=== PATIENT | male | born 1955 | race Caucasian/White ===

== ENCOUNTER 2017-10-27 16:23 | Emergency (ER) | payer BC ==
[2017-10-27] MEDS ORDERED: BUPIVACAINE 0.5% PF 10 ML VIAL ONE (16:43)
[2017-10-27] MEDS ORDERED: TETANUS & DIPHTHERIA TOX,ADULT 0.5 ML VIAL ONE (16:43)
--- NOTE | 2017-10-27 17:41 | RAD REPORT ---
EXAM DESCRIPTION: RAD - Ankle Left 3 View -10/27/2017 5:27 pm CLINICAL HISTORY: Left ankle pain status post injury FINDINGS: No fracture or dislocation is seen. A laceration involves the medial soft tissues of the ankle.
--- NOTE | 2017-10-27 17:55 | EDPHYS ---
Physician Documentation [facility] Name: Dilip Alonzo Age: 62 yrs Sex: Male : 1955 Arrival Date: 10/27/2017 Time: 16:25 Bed 13 Private MD: Kalen Latham T ED Physician Doe Sanchez HPI: 10/27 16:43 This 62 yrs old Male presents to ER via Ambulatory with complaints of jmm LACERATION TO ANKLE. 16:43 The patient presents with an injury. The complaints affect the left ankle, left medial jmm malleolus. Onset: The symptoms/episode began/occurred acutely, today. Context: patient states that a tractor pedal hit his left ankle, cut foot. pedal is spring loaded. Historical: - Allergies: 16:30 No Known Allergies; sg - Home Meds: 16:30 Tramadol Oral [Active]; gabapentin oral oral [Active]; sg - PMHx: 16:30 Back pain; sg - PSHx: 16:30 None; sg - Immunization history:: Last tetanus immunization: > 10 years ago. - Social history:: Smoking status: Patient/guardian denies using tobacco. - Ebola Screening: : Patient negative for fever greater than or equal to 101.5 degrees Fahrenheit, and additional compatible Ebola Virus Disease symptoms Patient denies exposure to infectious person Patient denies travel to an Ebola-affected area in the 21 days before illness onset No symptoms or risks identified at this time. ROS: 16:43 MS/extremity: Positive for laceration. jmm 16:43 Skin: Positive for laceration(s). 16:43 All other systems are negative. Exam: 16:43 Head/Face: atraumatic. jmm 16:43 Constitutional: The patient appears in no acute distress, alert, awake. 16:43 Cardiovascular: Rate: normal. 16:43 Respiratory: the patient does not display signs of respiratory distress, Respirations: normal. 16:43 Musculoskeletal/extremity: ROM: intact in all extremities, left medial malleolus tenderness noted. 16:43 Skin: 3 cm laceration is noted to the left medial mallolar region. 16:43 Neuro: Orientation: is normal, Mentation: is normal, Memory: is normal. 16:43 Psych: Behavior/mood is pleasant, cooperative. Vital Signs: 16:30 BP 139 / 96; Pulse 105; Resp 17; Temp 98.9(TE); Pulse Ox 97% ; Weight 90.72 kg (R); mh5 Height 6 ft. 0 in. (182.88 cm) (R); Pain 5/10; 18:18 BP 132 / 88; Pulse 98; Resp 16; Pulse Ox 99% ; kr2 16:30 Body Mass Index 27.13 (90.72 kg, 182.88 cm) [facility] Laceration: 18:00 Wound Repair of 3cm ( 1.2in ) subcutaneous laceration to left foot. Distal jmm neuro/vascular/tendon intact. Anesthesia: Local anesthetic administered with 3 mls of 0.5% marcaine. Wound prep: Moderate cleansing with betadine by nurse by ga, Copious irrigation. Skin closed with 4 4-0 Prolene using simple sutures and sterile technique. Patient tolerated well. MDM: 16:[address] [facility] 17:53 Data reviewed: vital signs, nurses notes. Counseling: I had a detailed discussion with [facility] the patient and/or guardian regarding: the historical points, exam findings, and any diagnostic results supporting the discharge/admit diagnosis, the presence of at least one elevated blood pressure reading (>120/80) during this emergency department visit, radiology results, the need for outpatient follow up, to return to the emergency department if symptoms worsen or persist or if there are any questions or concerns that arise at home. 10/27 16:40 Order name: Ankle Left 3 View XRAY; Complete Time: 17:55 [facility] Administered Medications: 16:45 Drug: Tetanus-Diphtheria Toxoid Adult 0.5 ml {[employer] Editor: [employer]. Exp: kr2 12/29/2019. Lot #: [id number]. } Route: IM; Site: left deltoid; 18:16 Follow up: Response: No adverse reaction kr2 17:00 Drug: Marcaine (0.5 %) 20 ml {Note: Administered by PA. Dale} Volume: 10 ml; kr2 Route: Infiltration; 18:16 Follow up: Response: No adverse reaction kr2 Disposition: 18:31 Co-signature as Attending Physician, Doe Sanchez MD. rn Disposition: 10/27/17 17:54 Discharged to Home. Impression: LACERATION OF FOOT. - Condition is Stable. - Discharge Instructions: Laceration Care, Adult. - Medication Reconciliation Form, Thank You Letter, Antibiotic Education, Prescription Opioid Use form. - Follow up: Kalen Latham MD; When: 1 week; Reason: Continuance of care, Staple/Suture removal. Signatures: Dispatcher [employer] EDEmeterio Alicia, RN RN Teddy Anderson PA PA jmm Nieto, Roman, MD MD rn Reaves, Karey, RN RN kr2 Corrections: (The following items were deleted from the chart) 18:19 17:54 10/27/2017 17:54 Discharged to Home. Impression: LACERATION OF FOOT. Condition is kr2 Stable. Forms are Medication Reconciliation Form, Thank You Letter, Antibiotic Education, Prescription Opioid Use. Follow up: Kalen Latham; When: 1 week; Reason: Continuance of care, Staple/Suture removal. shirin
--- NOTE | 2017-10-27 17:55 | ER ---
Nurse's Notes [facility] Name: Dilip Alonzo Age: 62 yrs Sex: Male : 1955 Arrival Date: 10/27/2017 Time: 16:25 Bed 13 Private MD: Kalen Latham T Diagnosis: LACERATION OF FOOT Presentation: 10/27 16:27 Presenting complaint: Patient states: Left ankle, mowing and using the clutch on a sg tractor when my floot slipped off the clutch causing the pedal to pop up and cut the back and side of my left ankle. Transition of care: patient was not received from another setting of care. Onset of symptoms was October 27, 2017. Risk Assessment: Do you want to hurt yourself or someone else? Patient reports no desire to harm self or others. Initial Sepsis Screen: Does the patient meet any 2 criteria? No. Patient's initial sepsis screen is negative. Does the patient have a suspected source of infection? No. Patient's initial sepsis screen is negative. Care prior to arrival: None. 16:27 Method Of Arrival: Ambulatory 16:33 Acuity: CHELITA 4 ss Historical: - Allergies: 16:30 No Known Allergies; sg - Home Meds: 16:30 Tramadol Oral [Active]; gabapentin oral oral [Active]; sg - PMHx: 16:30 Back pain; sg - PSHx: 16:30 None; sg - Immunization history:: Last tetanus immunization: > 10 years ago. - Social history:: Smoking status: Patient/guardian denies using tobacco. - Ebola Screening: : Patient negative for fever greater than or equal to 101.5 degrees Fahrenheit, and additional compatible Ebola Virus Disease symptoms Patient denies exposure to infectious person Patient denies travel to an Ebola-affected area in the 21 days before illness onset No symptoms or risks identified at this time. Screenin:01 Abuse screen: Denies threats or abuse. Denies injuries from another. Nutritional kr2 screening: No deficits noted. Tuberculosis screening: No symptoms or risk factors identified. Fall Risk None identified. Assessment: 16:40 General: Appears in no apparent distress. comfortable, well groomed, well developed, kr2 well nourished, Behavior is calm, cooperative, appropriate for age. Pain: Complains of pain in left medial malleolus Pain currently is 5 out of 10 on a pain scale. Quality of pain is described as aching, tender, Is continuous, Alleviated by rest, Aggravated by weight bearing. Neuro: Level of Consciousness is awake, alert, obeys commands, Oriented to person, place, time, situation. Cardiovascular: Capillary refill < 3 seconds in bilateral fingers Patient's skin is warm and dry. Respiratory: Airway is patent Respiratory effort is even, unlabored, Respiratory pattern is regular, symmetrical. Derm: Skin is healthy with good turgor, Skin is pink, warm \T\ dry. Musculoskeletal: Circulation, motion, and sensation intact. Range of motion: intact in all extremities. Injury Description: Laceration sustained to left medial malleolus is 2.6 to 7.5 cm long, was sustained 30-60 minutes ago. a small amount of bleeding noted at this time. A dressing was applied. 17:05 Reassessment: Patient appears in no apparent distress at this time. Patient and/or kr2 family updated on plan of care and expected duration. Pain level reassessed. Wound cleansed and irrigated, patient tolerated well. 18:00 Reassessment: Patient appears in no apparent distress at this time. Patient and/or kr2 family updated on plan of care and expected duration. Pain level reassessed. Patient is alert, oriented x 3, equal unlabored respirations, skin warm/dry/pink. Patient denies pain at this time. Vital Signs: 16:30 BP 139 / 96; Pulse 105; Resp 17; Temp 98.9(TE); Pulse Ox 97% ; Weight 90.72 kg (R); 5 Height 6 ft. 0 in. (182.88 cm) (R); Pain 5/10; 18:18 BP 132 / 88; Pulse 98; Resp 16; Pulse Ox 99% ; kr2 16:30 Body Mass Index 27.13 (90.72 kg, 182.88 cm) [facility] ED Course: 16:25 Patient arrived in ED. sb2 16:27 Kalen Latham MD is Private Physician. sb2 16:29 Triage completed. sg 16:30 Arm band placed on. sg 16:32 Teddy Becerra PA is PHCP. [facility] 16:32 Doe Sanchez MD is Attending Physician. m 16:35 Patient has correct armband on for positive identification. Bed in low position. Call mh5 light in reach. Pulse ox on. NIBP on. 16:44 Liliam Stuart, RN is Primary Nurse. kr2 17:28 Ankle Left 3 View XRAY In Process Unspecified. EDMS 17:54 Kalen Latham MD is Referral Physician. [facility] 18:16 No provider procedures requiring assistance completed. Patient did not have IV access kr2 during this emergency room visit. Administered Medications: 16:45 Drug: Tetanus-Diphtheria Toxoid Adult 0.5 ml {Fur Finisher: [employer]. Exp: kr2 12/29/2019. Lot #: [id number]. } Route: IM; Site: left deltoid; 18:16 Follow up: Response: No adverse reaction kr2 17:00 Drug: Marcaine (0.5 %) 20 ml {Note: Administered by RO Hunter.} Volume: 10 ml; kr2 Route: Infiltration; 18:16 Follow up: Response: No adverse reaction kr2 Outcome: 17:54 Discharge ordered by MD. [facility] 18:17 Discharged to home ambulatory. kr2 18:17 Condition: good 18:17 Discharge instructions given to patient, Instructed on discharge instructions, follow up and referral plans. wound care, Demonstrated understanding of instructions, follow-up care, wound care. 18:19 Patient left the ED. kr2 Signatures: Dispatcher [employer] EDMS Emeterio Floyd, Teddy Lawrence RN, PA PA Rossi Lawrence RN RN ss Mikayla Jara [facility] Liliam Stuart, RN RN kr2 Kitty Malcolm sb2 Corrections: (The following items were deleted from the chart) 16:33 16:27 Acuity: CHELITA 3 sg ss 16:35 16:30 Temp 98.9F Temporal; 90.72 kg Reported; Height 6 ft. 0 in. Reported; BMI: 27.1; mh5 Pain 5/10; sg
== END 2017-10-27 18:19 | disposition home or self-care (01) ==
LOC: ER 16:23
PROC: 0HQNXZZ Repair Left Foot Skin, External Approach (ICD-10-PCS; principal; 2017-10-27)
DX: S91.012A Laceration without foreign body, left ankle, initial encounter (principal); W22.8XXA Striking against or struck by other objects, initial encounter; Y93.89 Activity, other specified; Y92.9 Unspecified place or not applicable; Y99.8 Other external cause status; Z23 Encounter for immunization
CPT/HCPCS: 90714; 99284

== ENCOUNTER 2019-04-23 06:53 | Emergency (ER) | payer BC, OTHER ==
[2019-04-23] MEDS ORDERED: ONDANSETRON 4 MG/2 ML VIAL ONE (07:46)
[2019-04-23] MEDS ORDERED: FENTANYL CITR 100 MCG/2 ML ONE ×2 (07:46→11:02)
[2019-04-23] MEDS ORDERED: PANTOPRAZOLE 40 MG INJ ONE (07:46)
[2019-04-23 07:51] LABS: Absolute Lymphocytes (CBC) 0.9 K/uL (0.7-4.9); Basophils % 0.4 % (0-1.3); Hematocrit 40.7 % (39.6-49.0); Lymphocytes % 9.5 % (15.3-44.8); MPV 8.3 fL (7.6-11.3); RBC Red Blood Cell Count 4.54 M/uL (4.33-5.43)
[2019-04-23] MEDS ORDERED: PANTOPRAZOLE INJ 80 MG in NA CHLORIDE 0.9% 250 ML IV SCH (08:00)
[2019-04-23 08:02] LABS: Albumin 3.5 g/dL (3.4-5.0); Bilirubin Direct 0.1 mg/dL (0-0.2); Bilirubin Total 0.6 mg/dL (0.2-1.0); Potassium 4.3 mmol/L (3.5-5.1); Protein, Total 6.9 g/dL (6.4-8.2)
[2019-04-23 08:19] LABS: Blood Morphology Comment NOT SEEN (NOT SEEN); Platelet Estimate ADEQ; Urine White Blood Cell Casts OK
--- NOTE | 2019-04-23 15:00 | ER ---
Nurse's Notes [facility] Name: Dilip Alonzo Age: 64 yrs Sex: Male : 1955 Arrival Date: 04/23/2019 Time: 06:54 Bed External Waiting Private MD: Diagnosis: Gastrointestinal hemorrhage, unspecified Presentation: 04/23 06:59 Presenting complaint: Patient states: epigastric burning pain. Pt states "I was just in aa5 [place] and my stomach has been burning since then and now I am having black stools". Transition of care: patient was not received from another setting of care. Onset of symptoms was March 2019. Risk Assessment: Do you want to hurt yourself or someone else? Patient reports no desire to harm self or others. Care prior to arrival: None. 06:59 Acuity: CHELITA 3 aa5 06:59 Method Of Arrival: Ambulatory [facility] 07:10 Initial Sepsis Screen: Does the patient meet any 2 criteria? No. Patient's initial rb1 sepsis screen is negative. Does the patient have a suspected source of infection? No. Patient's initial sepsis screen is negative. Historical: - Allergies: 07:02 NSAIDS (Upset stomach); aa5 07:02 Codeine (itching ); aa5 - PMHx: 07:02 Back pain; aa5 - PSHx: 07:02 None; aa5 - Immunization history:: Flu vaccine is not up to date. - Social history:: Smoking status: Patient/guardian denies using tobacco. - Ebola Screening: : No symptoms or risks identified at this time. Screenin:10 Abuse screen: Denies threats or abuse. Nutritional screening: No deficits noted. rb1 Tuberculosis screening: No symptoms or risk factors identified. Fall Risk None identified. Assessment: 07:10 General: Appears uncomfortable, Behavior is calm, cooperative, Reports chills for 12-24 rb1 hours, Denies fever. Pain: Complains of pain in epigastric area Pain currently is 7 out of 10 on a pain scale. Neuro: Level of Consciousness is awake, alert, obeys commands, Oriented to person, place, time, situation. Cardiovascular: Capillary refill < 3 seconds is brisk in bilateral fingers. Respiratory: Airway is patent Respiratory effort is even, unlabored, Respiratory pattern is regular, symmetrical. GI: Bowel sounds present X 4 quads. Abd is soft Abdomen is tender to palpation in epigastric area Reports bloody stool, nausea, vomiting, pt. reports a burning sensation in his abdomen. : No signs and/or symptoms were reported regarding the genitourinary system. Derm: Skin is pink, warm \\T\\ dry. 08:10 Reassessment: Patient appears in no apparent distress at this time. Patient and/or rb1 family updated on plan of care and expected duration. Pain level reassessed. Patient is alert, oriented x 3, equal unlabored respirations, skin warm/dry/pink. 09:00 Reassessment: Patient appears in no apparent distress at this time. Patient and/or rb1 family updated on plan of care and expected duration. Pain level reassessed. Patient is alert, oriented x 3, equal unlabored respirations, skin warm/dry/pink. 10:00 Reassessment: Patient appears in no apparent distress at this time. Patient and/or rb1 family updated on plan of care and expected duration. Pain level reassessed. Patient is alert, oriented x 3, equal unlabored respirations, skin warm/dry/pink. No vomiting noted since the pt. was placed into the exam room. at the bedside. 10:10 Reassessment: Called report to DION Urbano at [facility]. Information from the SBAR was rb1 given. All questions asked and answered. 11:00 Reassessment: Gave report to [facility]. Pt. requested pain medication before rb1 being transferred. David notified, received order for Fentanyl 50 mcg IVP x once. 100% read back. Vital Signs: 07:02 BP 126 / 93; Pulse 87; Resp 16 S; Pulse Ox 98% on R/A; Weight 88.45 kg (R); Height 6 aa5 ft. 0 in. (182.88 cm) (R); Pain 6/10; 07:30 BP 135 / 99; Pulse 83; Resp 17; Pulse Ox 100% on R/A; Pain 7/10; rb1 08:30 BP 137 / 90; Pulse 77; Resp 18; Pulse Ox 99% on R/A; Pain 4/10; rb1 09:30 BP 148 / 94; Pulse 88; Resp 17; Pulse Ox 100% on R/A; Pain 7/10; rb1 10:30 BP 139 / 83; Pulse 84; Resp 19; Pulse Ox 100% on R/A; Pain 6/10; rb1 11:00 BP 130 / 97; Pulse 89; Resp 17; Pulse Ox 99% on R/A; rb1 07:02 Body Mass Index 26.45 (88.45 kg, 182.88 cm) aa5 ED Course: 06:54 Patient arrived in ED. ds1 06:59 Arm band placed on. aa5 07:01 Triage completed. aa5 07:10 Patient has correct armband on for positive identification. Bed in low position. Call rb1 light in reach. Side rails up X 1. Pulse ox on. NIBP on. Warm blanket given. Pillow given. 07:15 Hubert Hernandez PA is PHCP. jr8 07:15 Ngoc Salinas MD is Attending Physician. jr8 07:24 Kamilla Melara, DION is Primary Nurse. rb1 07:33 Inserted saline lock: 22 gauge in left antecubital area, using aseptic technique. Blood rb1 collected. 11:04 No provider procedures requiring assistance completed. Patient transferred, IV remains rb1 in place. Administered Medications: 08:00 Drug: Zofran 4 mg Route: IVP; Site: left antecubital; rb1 08:15 Follow up: Response: No adverse reaction; Nausea is decreased rb1 08:00 Drug: fentaNYL (PF) 50 mcg Route: IVP; Site: left antecubital; rb1 08:15 Follow up: Response: No adverse reaction; Pain is decreased rb1 08:00 Drug: ProTONIX 40 mg Route: IVP; Site: left antecubital; rb1 08:15 Follow up: Response: No adverse reaction rb1 08:15 Drug: ProTONIX 8 mg/hr Route: IV; Rate: 25 ml/hr; Site: left antecubital; rb1 08:30 Follow up: Response: No adverse reaction rb1 11:04 Follow up: IV Status: Infusion continued upon transfer rb1 Outcome: 09:46 ER care complete, transfer ordered by . jr8 11:04 Transferred by ground EMS to [facility], Transfer form completed. rb1 11:04 Condition: stable 11:04 Instructed on the need for transfer. 11:22 Patient left the ED. Signatures: Sherrell Sotelo ds1 Vernell Medina RN RN aa5 Rossi Brown RN RN ss Hubert Hernandez PA PA jr8 Kamilla Melara, RN RN rb1 Corrections: (The following items were deleted from the chart) 10:04 07:10 GI: Bowel sounds present X 4 quads. Abd is soft Abdomen is tender to palpation in rb1 epigastric area Reports bloody stool, nausea, vomiting, rb1
--- NOTE | 2019-04-23 15:01 | EDPHYS ---
Physician Documentation [facility] Name: Dilip Alonzo Age: 64 yrs Sex: Male : 1955 Arrival Date: 04/23/2019 Time: 06:54 Bed External Waiting Private MD: ED Physician Ngoc Salinas HPI: 04/23 07:48 This 64 yrs old Male presents to ER via Ambulatory with complaints of jr8 Black/Tarry Stools, Abdominal Pain. 07:48 The patient presents to the emergency department vomiting blood, a small amount, coffee jr8 grounds in nature, with rectal bleeding, a moderate amount, melena, with multiple such episodes. Onset: The symptoms/episode began/occurred acutely, today. Abdominal pain: described as burning, crampy, located in the epigastric area. Modifying factors: The symptoms are alleviated by nothing, the symptoms are aggravated by food, PO intake. Associated signs and symptoms: The patient has no apparent associated signs or symptoms. Severity of symptoms: At their worst the symptoms were moderate in the emergency department the symptoms are unchanged. The patient has not experienced similar symptoms in the past. The patient has not recently seen a physician. Historical: - Allergies: 07:02 NSAIDS (Upset stomach); aa5 07:02 Codeine (itching ); aa5 - PMHx: 07:02 Back pain; aa5 - PSHx: 07:02 None; aa5 - Immunization history:: Flu vaccine is not up to date. - Social history:: Smoking status: Patient/guardian denies using tobacco. - Ebola Screening: : No symptoms or risks identified at this time. ROS: 07:48 Eyes: Negative for injury, pain, redness, and discharge, ENT: Negative for injury, jr8 pain, and discharge, Neck: Negative for injury, pain, and swelling, Cardiovascular: Negative for chest pain, palpitations, and edema, Respiratory: Negative for shortness of breath, cough, wheezing, and pleuritic chest pain, Back: Negative for injury and pain, MS/Extremity: Negative for injury and deformity, Skin: Negative for injury, rash, and discoloration, Neuro: Negative for headache, weakness, numbness, tingling, and seizure. 07:48 Abdomen/GI: Positive for abdominal pain, nausea and vomiting, diarrhea, black/tarry stool. Exam: 07:48 Eyes: Pupils equal round and reactive to light, extra-ocular motions intact. Lids and jr8 lashes normal. Conjunctiva and sclera are non-icteric and not injected. Cornea within normal limits. Periorbital areas with no swelling, redness, or edema. ENT: Nares patent. No nasal discharge, no septal abnormalities noted. Tympanic membranes are normal and external auditory canals are clear. Oropharynx with no redness, swelling, or masses, exudates, or evidence of obstruction, uvula midline. Mucous membranes moist. Neck: Trachea midline, no thyromegaly or masses palpated, and no cervical lymphadenopathy. Supple, full range of motion without nuchal rigidity, or vertebral point tenderness. No Meningismus. Cardiovascular: Regular rate and rhythm with a normal S1 and S2. No gallops, murmurs, or rubs. Normal PMI, no JVD. No pulse deficits. Respiratory: Lungs have equal breath sounds bilaterally, clear to auscultation and percussion. No rales, rhonchi or wheezes noted. No increased work of breathing, no retractions or nasal flaring. Back: No spinal tenderness. No costovertebral tenderness. Full range of motion. Skin: Warm, dry with normal turgor. Normal color with no rashes, no lesions, and no evidence of cellulitis. MS/ Extremity: Pulses equal, no cyanosis. Neurovascular intact. Full, normal range of motion. Neuro: Awake and alert, GCS 15, oriented to person, place, time, and situation. Cranial nerves II-XII grossly intact. Motor strength 5/5 in all extremities. Sensory grossly intact. Cerebellar exam normal. Normal gait. 07:48 Abdomen/GI: Inspection: abdomen appears normal, Bowel sounds: active, all quadrants, Palpation: soft, in all quadrants, moderate abdominal tenderness, in the epigastric area, mass, is not appreciated, rebound tenderness, is not appreciated, voluntary guarding, is not appreciated, involuntary guarding, is not appreciated, no appreciated organomegaly, Indicators: McBurney's point is not tender, Giang's sign is negative, Rovsing's sign is negative, Liver: tenderness, is not appreciated. Vital Signs: 07:02 BP 126 / 93; Pulse 87; Resp 16 S; Pulse Ox 98% on R/A; Weight 88.45 kg (R); Height 6 aa5 ft. 0 in. (182.88 cm) (R); Pain 6/10; 07:30 BP 135 / 99; Pulse 83; Resp 17; Pulse Ox 100% on R/A; Pain 7/10; rb1 08:30 BP 137 / 90; Pulse 77; Resp 18; Pulse Ox 99% on R/A; Pain 4/10; rb1 09:30 BP 148 / 94; Pulse 88; Resp 17; Pulse Ox 100% on R/A; Pain 7/10; rb1 10:30 BP 139 / 83; Pulse 84; Resp 19; Pulse Ox 100% on R/A; Pain 6/10; rb1 11:00 BP 130 / 97; Pulse 89; Resp 17; Pulse Ox 99% on R/A; rb1 07:02 Body Mass Index 26.45 (88.45 kg, 182.88 cm) aa5 MDM: 07:16 Patient medically screened. jr8 09:39 Data reviewed: vital signs, nurses notes, lab test result(s). Data interpreted: Pulse jr8 oximetry: on room air is 98 %. Interpretation: normal. Counseling: I had a detailed discussion with the patient and/or guardian regarding: the historical points, exam findings, and any diagnostic results supporting the discharge/admit diagnosis, lab results, the need to transfer to another facility, [facility] does not immediately have the required specialist. ED course: Dr. Anika SRIVASTAVA at [facility] accepted patient along with medicine team . 04/23 07:15 Order name: Basic Metabolic Panel [facility] 04/23 07:15 Order name: CBC with Diff [facility] 04/23 07:15 Order name: Creatinine for Radiology; Complete Time: 08:[address] [facility] 04/23 07:15 Order name: Hepatic Function; Complete Time: 08:05 jr8 04/23 07:15 Order name: Lipase; Complete Time: 08:05 jr8 04/23 07:15 Order name: TS jr8 04/23 07:15 Order name: IV Saline Lock; Complete Time: 07:39 jr8 04/23 07:15 Order name: Labs collected and sent; Complete Time: 07:40 8 04/23 07:16 Order name: Basic Metabolic Panel; Complete Time: 08:05 EDME 04/23 07:53 Order name: CBC Smear Scan EDMS 04/23 08:05 Order name: Labs - recollect needed; Complete Time: 12:36 bd Administered Medications: 08:00 Drug: Zofran 4 mg Route: IVP; Site: left antecubital; rb1 08:15 Follow up: Response: No adverse reaction; Nausea is decreased rb1 08:00 Drug: fentaNYL (PF) 50 mcg Route: IVP; Site: left antecubital; rb1 08:15 Follow up: Response: No adverse reaction; Pain is decreased rb1 08:00 Drug: ProTONIX 40 mg Route: IVP; Site: left antecubital; rb1 08:15 Follow up: Response: No adverse reaction rb1 08:15 Drug: ProTONIX 8 mg/hr Route: IV; Rate: 25 ml/hr; Site: left antecubital; rb1 08:30 Follow up: Response: No adverse reaction rb1 11:04 Follow up: IV Status: Infusion continued upon transfer rb1 Disposition: 15:53 Co-signature as Attending Physician, Ngoc Salinas MD. ma2 Disposition: 04/23/19 09:46 Transfer ordered to [facility]. Diagnosis is Gastrointestinal hemorrhage, unspecified. - Reason for transfer: Higher level of care. - Accepting physician is [facility]. - Condition is Stable. - Problem is new. - Symptoms are unchanged. Signatures: Dispatcher [employer] Radha Martinez Audri, RN RN aa5 Rossi Brown RN RN ss Hubert Hernandez PA PA jr8 Kamilla Melara RN RN rb1 Ngoc Salinas MD MD ma2 Corrections: (The following items were deleted from the chart) 11:22 09:46 04/23/2019 09:46 Transfer ordered to [facility]. Diagnosis is ss Gastrointestinal hemorrhage, unspecified. Reason for transfer: Higher level of care. Accepting physician is [facility]. Condition is Stable. Problem is new. Symptoms are unchanged. jr8
[2019-04-23 15:28] VITALS: BP 130/97; O2SAT 99
== END 2019-04-23 11:22 | disposition short-term general hospital (02) ==
LOC: ER 06:53
DX: R04.2 Hemoptysis (principal); Z88.5 Allergy status to narcotic agent; Z88.6 Allergy status to analgesic agent
CPT/HCPCS: 96365; 85025; 80048; 36415; 86900; 86850; 86901; 80076; 83690; 96375; 99285; 96366; C9113 ×2; J3010 ×2; J7030; J2405

== ENCOUNTER 2024-05-15 08:48 | Emergency (ER) | payer OTHER ==
[2024-05-15] MEDS ORDERED: NA CHLORIDE 0.9% 500 ML ONE (09:19)
[2024-05-15 09:29] LABS: Absolute Eosinophils 0.1 K/uL (0-0.5); Absolute Lymphocytes (CBC) 1.1 K/uL (0.7-4.9); Absolute Monocytes 0.5 K/uL (0.1-1.3); Absolute Neutrophil 5.5 K/uL (1.8-8.0); Basophils % 0.4 % (0-1.3); Hematocrit 47.5 % (39.6-49.0); Hemoglobin 16.2 g/dL (13.6-17.9); Lymphocytes % 15.1 % (15.3-44.8); MCH 32.6 pg (27.0-35.0); MCHC 34.1 g/dL (32.0-36.0); MCV 95.5 fL (80-100); MPV 7.7 fL (7.6-11.3); Monocytes % 6.6 % (3.3-12.3); Neutrophils % 76.9 % (41.7-73.7); Platelets 270 thou/uL (152-406); RBC Red Blood Cell Count 4.98 M/uL (4.33-5.43); Red Cell Distribution Width 13.6 % (12.1-15.2)
[2024-05-15 09:46] LABS: Albumin 3.7 g/dL (3.4-5.0); Albumin/Globulin Ratio 1.1 (1.1-1.8); Anion Gap 6.9 mEq/L (5.0-15.0); Bilirubin Total 1.5 mg/dL (0.2-1.0); Globulin 3.3 g/dL (2.3-3.5); Potassium 3.9 mEq/L (3.5-5.1)
--- NOTE | 2024-05-15 10:25 | RAD REPORT ---
EXAMINATION: CT Abdomen Pelvis Wo Contrast CLINICAL INDICATION: Male, 69 years old. difficulty urinating;Flank pain TECHNIQUE: CT abdomen and pelvis was performed, without IV contrast, as per department protocol. Axia l, sagittal and coronal reconstructions were obtained. One or more of the following dose reduction techniques were used: Automated exposure control, adjustment of the mA and kV according to the patien t size, and iterative reconstruction. Unless otherwise specified, incidental findings do not require dedicated imaging follow-up. COMPARISON: No prior exam. FINDINGS: The lack of intravenous contrast limits the sensitivity of this exam for evaluation of solid visceral organs, vascular structures, and retroperitoneum. LOWER CHEST: The visualized lung bases are clear. LIVER: Normal in size and contour. No focal lesion. BILIARY SYSTEM: No suspicious abnormalities. SPLEEN: Normal size. No focal lesion. PANCREAS: No mass, ductal dilation, or jamie-pancreatic fluid. ADRENALS: Normal; no mass. KIDNEYS AND URETERS: Normal size and contour. No hydronephrosis. URINARY BLADDER: Normal contour. GASTROINTESTINAL TRACT: No evidence of bowel obstruction, significant free fluid, free air or abscess . APPENDIX: Normal appendix. LYMPH NODES: No lymphadenopathy. MUSCULOSKELETAL: No acute or suspicious osseous abnormality. ADDITIONAL FINDINGS: Nonspecific mild fat stranding in the mesenteric root. This could be idiopathic or related to multiple possible etiologies, including but not limited to an upper abdominal infectious/inflammatory process, panniculitis, and can even be seen with neoplastic conditions such a s lymphoma. Mild prostatomegaly IMPRESSION: No acute or concerning abnormalities in the abdomen or pelvis, with evaluation limited by lack of IV contrast. Incidental findings as above
[2024-05-15 11:10] LABS: Specific Gravity 1.012 (1.005-1.030); Sqamous Epithelial <5 /HPF (None Seen); Urine Bacteria <20 /HPF (<20); Urine Bilirubin NEGATIVE (Negative); Urine Blood Negative (Negative); Urine Clarity Clear (Clear); Urine Color Light-Yellow (Yellow); Urine Crystals Unidentified Few /HPF (None Seen); Urine Culture Reflex Order NOT NEEDED; Urine Glucose NEGATIVE (Negative); Urine Ketones NEGATIVE (Negative); Urine Microscopic Reflex YN ORDER UMIC; Urine Mucus Slight /HPF (None Seen); Urine Nitrite NEGATIVE (Negative); Urine Protein NEGATIVE (Negative); Urine RBC <5 /HPF (None Seen); Urine Urobilinogen Normal (Normal); Urine WBC <5 /HPF (<5); Urine Yeast (Budding) Trace /HPF (None Seen); Urine pH 6.5 (5.0-7.0)
--- NOTE | 2024-05-15 11:17 | ER ---
Nurse's Notes [facility] Name: Dilip Alonzo Jr Age: 69 yrs Sex: Male : 1955 Arrival Date: 05/15/2024 Time: 08:48 Bed 7 Private MD: Diagnosis: Dysuria, urinary retention Presentation: 05/15 09:07 Chief complaint: Difficulty urinating and pain with urination x 3 days. Coronavirus hb screen: At this time, the client does not indicate any symptoms associated with coronavirus-19. Ebola Screen: No symptoms or risks identified at this time. Initial Sepsis Screen: Does the patient meet any 2 criteria? No. Patient's initial sepsis screen is negative. Does the patient have a suspected source of infection? No. Patient's initial sepsis screen is negative. Risk Assessment: Do you want to hurt yourself or someone else? Patient reports no desire to harm self or others. Onset of symptoms was May 13, 2024. 09:07 Method Of Arrival: Ambulatory hb 09:07 Acuity: CHELITA 3 hb Historical: - Allergies: 09:09 Codeine (Itching); hb 09:09 NSAIDS (Upset stomach); hb - Home Meds: 09:09 Vicodin Oral [Active]; Ambien Oral [Active]; gabapentin oral [Active]; hb - PMHx: 09:09 Back pain; hb - PSHx: 09:09 Pain Stimulator; hb - Immunization history:: Adult Immunizations up to date. - Infectious Disease History:: Denies. - Social history:: Smoking status: Patient denies any tobacco usage or history of. Screenin:25 [facility] ED Fall Risk Assessment (Adult) History of falling in the last 3 months, ph including since admission No falls in past 3 months (0 pts) Confusion or Disorientation No (0 pts) Intoxicated or Sedated No (0 pts) Impaired Gait No (0 pts) Mobility Assist Device Used No (0 pt) Altered Elimination No (0 pt) Score/Fall Risk Level 0 - 2 = Low Risk Oriented to surroundings, Maintained a safe environment, Hourly rounding (assess needs \T\ fall precautionary measures) done. Abuse screen: Denies threats or abuse. Denies injuries from another. Nutritional screening: No deficits noted. Tuberculosis screening: No symptoms or risk factors identified. Assessment: 09:24 General: Appears in no apparent distress. comfortable, well groomed, Behavior is calm, ph cooperative, appropriate for age. Pain: Complains of pain in pelvis. Neuro: Level of Consciousness is awake, alert, obeys commands, Oriented to person, place, time, situation. Cardiovascular: Capillary refill < 3 seconds in bilateral fingers Patient's skin is warm and dry. Respiratory: Airway is patent Respiratory effort is even, unlabored, Respiratory pattern is regular, symmetrical. : Reports burning with urination. Derm: Skin is healthy with good turgor, Skin is pink, warm \T\ dry. Musculoskeletal: Circulation, motion, and sensation intact. Range of motion: intact in all extremities. Vital Signs: 09:07 BP 150 / 93; Pulse 88; Resp 16; Temp 98.3(O); Pulse Ox 98% on R/A; Weight 84.82 kg; hb Height 6 ft. 0 in. ; Pain 2/10; 10:57 BP 139 / 93; Pulse 84; Resp 18; Pulse Ox 99% on R/A; ph 09:07 Body Mass Index 25.36 (84.82 kg, 182.88 cm) hb 09:07 Pain Scale: Adult hb ED Course: 08:51 Patient arrived in ED. im 09:01 June Portillo MD is Attending Physician. sp3 09:09 Triage completed. hb 09:13 Arm band placed on. hb 09:17 Ricarda Pichardo, RN is Primary Nurse. ph 09:23 Missed attempt(s): 22 gauge in right antecubital area. Bleeding controlled, band aid ll1 applied, catheter tip intact. 09:25 Patient has correct armband on for positive identification. Bed in low position. Call ph light in reach. Side rails up X 1. Pulse ox on. NIBP on. Door closed. Noise minimized. Warm blanket given. 09:25 Initial lab(s) drawn, by ED staff, sent to lab. Inserted saline lock: 20 gauge in right ph antecubital area, using aseptic technique. Blood collected. Flushed with 10 mL NS. 09:48 CT Abd/Pelvis - Without Contrast In Process Unspecified. EDMS 11:16 Bacilio Pastrana MD is Referral Physician. sp3 11:28 No provider procedures requiring assistance completed. IV discontinued, intact, ph bleeding controlled, No redness/swelling at site. Pressure dressing applied. Administered Medications: :24 Drug: NS 0.9% IV 500 ml 500 ml IV at 1 bolus once; to be given as a bolus over 30 ph minutes Volume: 500 ml; Route: IV; Rate: 1 bolus; Site: right antecubital; 10:00 Follow up: Response: No adverse reaction; IV Status: Completed infusion; IV Intake: ph 500ml Medication: : VIS not applicable for this client. ph Intake: 10:00 IV: 500ml; Total: 500ml. ph Outcome: 11:16 Discharge ordered by sp3 :28 Discharged to home ambulatory, with significant other, ph : Condition: good :28 Discharge instructions given to patient, Instructed on discharge instructions, follow up and referral plans. medication usage, Demonstrated understanding of instructions, follow-up care, medications, Prescriptions given X 1, :28 Patient left the ED. ph Signatures: Dispatcher [employer] EDRicarda Julien RN RN Sheryl Teresa RN RN Angelina Kraft RN RN ll1 June Portillo MD MD sp3 Apple oRberts
--- NOTE | 2024-05-15 11:17 | EDPHYS ---
Physician Documentation [facility] Name: Dilip Alonzo Jr Age: 69 yrs Sex: Male : 1955 Arrival Date: 05/15/2024 Time: 08:48 Bed 7 Private MD: ED Physician June Portillo HPI: 05/15 09:21 This 69 yrs old Male presents to ER via Ambulatory with complaints of Pain With sp3 Urination, Urinary Retention. 09:21 69-year-old male with history of chronic low back pain now presents to the ED with sp3 chief complaint dysuria, urinary retention and general difficulty urinating. Patient has no history of kidney stones, prior UTI/STI, or any other pathology. Patient has been told his prostate may be mildly enlarged but his PSA levels have been normal. He denies any other symptoms including headache, URI symptoms, chest pain, shortness of breath, abdominal pain, fever, or any other signs or symptoms on ROS at this time.. Historical: - Allergies: 09:09 Codeine (Itching); hb 09:09 NSAIDS (Upset stomach); hb - Home Meds: 09:09 Vicodin Oral [Active]; Ambien Oral [Active]; gabapentin oral [Active]; hb - PMHx: 09:09 Back pain; hb - PSHx: 09:09 Pain Stimulator; hb - Immunization history:: Adult Immunizations up to date. - Infectious Disease History:: Denies. - Social history:: Smoking status: Patient denies any tobacco usage or history of. ROS: 09:22 Constitutional: Negative for fever, chills, and weight loss, Eyes: Negative for injury, sp3 pain, redness, and discharge, Neck: Negative for injury, pain, and swelling, Cardiovascular: Negative for chest pain, palpitations, and edema, Respiratory: Negative for shortness of breath, cough, wheezing, and pleuritic chest pain, Back: Negative for injury and pain, MS/Extremity: Negative for injury and deformity, Skin: Negative for injury, rash, and discoloration, Neuro: Negative for headache, weakness, numbness, tingling, and seizure, Psych: Negative for depression, anxiety, suicide ideation, homicidal ideation, and hallucinations, Allergy/Immunology: Negative for hives, rash, and allergies, Endocrine: Negative for neck swelling, polydipsia, polyuria, polyphagia, and marked weight changes, 09:22 All other systems are negative, Exam: 09:22 Constitutional: This is a well developed, well nourished patient who is awake, alert, sp3 and in no acute distress. Head/Face: Normocephalic, atraumatic. Eyes: Pupils equal round and reactive to light, extra-ocular motions intact. Lids and lashes normal. Conjunctiva and sclera are non-icteric and not injected. Cornea within normal limits. Periorbital areas with no swelling, redness, or edema. Neck: Trachea midline, no thyromegaly or masses palpated, and no cervical lymphadenopathy. Supple, full range of motion without nuchal rigidity, or vertebral point tenderness. No Meningismus. Chest/axilla: Normal chest wall appearance and motion. Nontender with no deformity. No lesions are appreciated. Cardiovascular: Regular rate and rhythm with a normal S1 and S2. No gallops, murmurs, or rubs. Normal PMI, no JVD. No pulse deficits. Respiratory: Lungs have equal breath sounds bilaterally, clear to auscultation and percussion. No rales, rhonchi or wheezes noted. No increased work of breathing, no retractions or nasal flaring. Abdomen/GI: Soft, non-tender, with normal bowel sounds. No distension or tympany. No guarding or rebound. No evidence of tenderness throughout. Back: No spinal tenderness. No costovertebral tenderness. Full range of motion. Skin: Warm, dry with normal turgor. Normal color with no rashes, no lesions, and no evidence of cellulitis. MS/ Extremity: Pulses equal, no cyanosis. Neurovascular intact. Full, normal range of motion. Neuro: Awake and alert, GCS 15, oriented to person, place, time, and situation. Cranial nerves II-XII grossly intact. Motor strength 5/5 in all extremities. Sensory grossly intact. Cerebellar exam normal. Normal gait. Psych: Awake, alert, with orientation to person, place and time. Behavior, mood, and affect are within normal limits. Vital Signs: 09:07 BP 150 / 93; Pulse 88; Resp 16; Temp 98.3(O); Pulse Ox 98% on R/A; Weight 84.82 kg; hb Height 6 ft. 0 in. ; Pain 2/10; 10:57 BP 139 / 93; Pulse 84; Resp 18; Pulse Ox 99% on R/A; ph 09:07 Body Mass Index 25.36 (84.82 kg, 182.88 cm) hb 09:07 Pain Scale: Adult hb MDM: 09:02 Medical Screening Exam initiated sp3 09:22 Data reviewed: vital signs, nurses notes, lab test result(s), radiologic studies. ED sp3 course: 69-year-old male with PMH above now with type symptoms. Workup will include CT scan of the abdomen pelvis noncontrast, UA, general labs and supportive care. Differential diagnosis includes UTI, pyelonephritis, kidney stone, urinary retention, prostate hypertrophy/outflow obstruction, among others. Workup as above and disposition pending workup and patient course. Patient took p.o. Vicodin prior to arrival and declines any current pain medications.. 11:15 ED course: Full workup negative. Given symptoms, we will place patient on Bactrim and sp3 have him see urology for further evaluation of prostate and workup. Other possibility is he had a stone and has passed it. However no hydronephrosis or red cells noted in the urine whatsoever.. 05/15 09:12 Order name: CBC with Diff; Complete Time: 10:27 sp3 05/15 09:12 Order name: CMP; Complete Time: 10:27 sp3 05/15 09:12 Order name: Lipase; Complete Time: 10:27 sp3 05/15 09:12 Order name: Urinalysis w/ reflexes; Complete Time: 11:14 sp3 05/15 09:12 Order name: CT Abd/Pelvis - Without Contrast; Complete Time: 10:27 sp3 05/15 09:12 Order name: IV Saline Lock; Complete Time: 09:14 sp3 05/15 09:12 Order name: Labs collected and sent; Complete Time: 09:13 sp3 Administered Medications: 09:24 Drug: NS 0.9% IV 500 ml 500 ml IV at 1 bolus once; to be given as a bolus over 30 ph minutes Volume: 500 ml; Route: IV; Rate: 1 bolus; Site: right antecubital; 10:00 Follow up: Response: No adverse reaction; IV Status: Completed infusion; IV Intake: ph 500ml Disposition Summary: 01/15/25 11:16 Discharge Ordered Notes: Location: Home sp3 Condition: Stable sp3 Diagnosis - Dysuria, urinary retention sp3 Followup: sp3 - With: Private Physician - When: Upon discharge from the Emergency Department - Reason: Continuance of care Followup: sp3 - With: Bacilio Pastrana MD - When: Upon discharge from the Emergency Department - Reason: Recheck today's complaints Discharge Instructions: - Discharge Summary Sheet sp3 - Dysuria sp3 Forms: - Medication Reconciliation Form sp3 - Antibiotic Education sp3 - Prescription Opioid Use sp3 - Patient Portal Instructions sp3 - Leadership Thank You Letter sp3 Prescriptions: - levofloxacin 500 mg Oral tablet - take 1 tablet ORAL route once daily for 7 days; 7 tablet; Refills: 0, Product sp3 Selection Permitted Signatures: Dispatcher [employer] Ricarda Ordonez RN RN ph Baxter, Heather, RN RN hb Patel, Setul, MD MD sp3
[2024-05-17 02:10] VITALS: BP 139/93; TEMP 98.3; O2SAT 99
== END 2024-05-15 11:28 | disposition home or self-care (01) ==
LOC: ER 08:48
DX: R30.0 Dysuria (principal); R33.9 Retention of urine, unspecified; Z88.6 Allergy status to analgesic agent; Z88.5 Allergy status to narcotic agent
CPT/HCPCS: 85025; 81001; 36415; 83690; 80053; 74176; 96360; 99284; J7040